=== PATIENT | male | born 1945 | race Caucasian/White ===

== ENCOUNTER 2020-10-10 07:02 | Day surgery (SDC) | payer OTHER ==
[2020-10-09 08:38] LABS: Absolute Lymphocytes (CBC) 1.4 K/uL (0.7-4.9); Basophils % 0.6 % (0-1.3); Hematocrit 39.8 % (39.6-49.0); MPV 7.8 fL (7.6-11.3); RBC Red Blood Cell Count 4.66 M/uL (4.33-5.43)
--- NOTE | 2020-10-09 08:58 | EKG ---
Test Date: 2020-10-09 Test Time: 07:17:25 Tapper Balance Wheel Screw Hole: BEVERLY MEASUREMENT RESULTS: Intervals: Rate: 83 [place]: 170 QRSD: 108 QT: 384 QTc: 451 [place]: P: 65 [place]: 170 QRS: 58 T: 53 INTERPRETIVE STATEMENTS: Sinus rhythm with frequent premature ventricular complexes Possible Left atrial enlargement Borderline ECG Compared to ECG 11/28/2003 08:54:00 Ventricular premature complex(es) now present Electronically Signed On 10-09-20 08:58:32 CDT by Gilmar Fatima
--- NOTE | 2020-10-09 09:36 | RAD REPORT ---
EXAM DESCRIPTION: RAD - Chest Pa And Lat (2 Views) - 10/09/2020 8:42 am CLINICAL HISTORY: preop Chest pain. FINDINGS: The lungs are clear. The heart is normal in size. No displaced fractures. IMPRESSION: No acute or concerning finding suspected.
[2020-10-10] MEDS ORDERED: CEFAZOLIN/SWI 1gm 1 GM/10 ML SYR ONE (07:41)
[2020-10-10] MEDS ORDERED: Ringers Lactate 1,000 ML IV ONE (07:41)
[2020-10-10] MEDS ORDERED: propofoL 200 MG/20 ML VIAL IV ONE (09:40)
[2020-10-10] MEDS ORDERED: LIDOCAINE 2% MPF 5 ML VIAL ONE (09:40)
[2020-10-10] MEDS ORDERED: FENTANYL CITR 100 MCG/2 ML ONE ×2 (09:40→10:42)
[2020-10-10] MEDS ORDERED: ROCURONIUM 50 MG/5 ML VIAL IV ONE (09:40)
[2020-10-10] MEDS ORDERED: MIDAZOLAM HCL 2 MG/2 ML INJ ONE (09:41)
[2020-10-10] MEDS ORDERED: EPHEDRINE SULF 50 MG/ML VIAL ONE (10:31)
[2020-10-10] MEDS ORDERED: GLYCOPYRROLATE 0.2 MG/ML SYR ONE (10:47)
[2020-10-10] MEDS ORDERED: NEOSTIGMINE 1 MG/ML -5 ML ONE (10:47)
[2020-10-10] MEDS: HYDROMORPHONE HCL 1 MG/ML INJ ONE ×2 (10:54→10:59)
[2020-10-10] MEDS ORDERED: ONDANSETRON 4 MG/2 ML VIAL ONE (11:07)
[2020-10-10] MEDS ORDERED: PROMETHAZINE INJ 25 MG/ML AMP ONE (11:12)
--- NOTE | 2020-10-10 11:30 | OP ---
Date of Procedure: 10/10/2020 Surgeon: Carl Almanza MD Med[employer] English [employer] Professor: CHELSEA Rojas. Preoperative Diagnosis: Left inguinal hernia. Postoperative Diagnosis: Left inguinal hernia. Procedure: Repair of left inguinal hernia. Estimated Blood Loss: Minimal. Specimen: Hernia sac and cord lipoma. Findings: As above. Anesthesia: General. Complications: None. Disposition: The patient tolerated the procedure in stable condition and taken to Recovery in good g eneral condition. Procedure In Detail: The patient was brought to the OR and placed in supine position. General anest hesia begun. The patient was prepped and draped in the usual sterile fashion. Marcaine 0.5% was inf iltrated locally. A 15-blade was used to make a 4 cm oblique incision between the left pubic tubercl e and the anterior iliac superior spine. Subcutaneous tissue was divided. Mily fascia identified and divided. Aponeurosis was identified and mobilized inferiorly to expose shelving edge, then opene d through the external ring. The ilioinguinal nerve and cord structures were identified and the cord structures mobilized large indirect sac and cord lipoma were identified, both excised wit h high ligation with 2-0 chromic and 2-0 Prolene for the sac and free hand tie. Then, Marlex mesh pl ug was placed in the internal ring and secured with VersaTack stapler. The onlay mesh placed on the inguinal floor, secured medially to the pubic tubercle, inferiorly to the shelving edge, laterally to each other, superiorly to the conjoined tendon. The cord structures and ilioinguinal nerve were micah frank back in anatomical location. Aponeurosis closed with 2-0 Prolene and 3-0 chromic used to close t he Mily fascia. Zearing were used to close the skin. Sterile dressings were applied. The patient was awakened and taken to Recovery in good general condition. Discharge Note: The patient will go to Day Surgery and home when stable. Disposition: Home. Condition: Stable. Discharge Instructions: Resume home medications and diet. Activity as tolerated. No heavy lifting. Remove outer dressing in 2 days. Shower. Keep wound clean and dry. Follow up in my office in 1 w [place]. Call for appointment. Tylenol No.3 one tablet p.o. q.4 p.r.n. pain. Ice pack and scrotal supp ort as ordered. NAUN/KARLA Voice ID: [id number] Report ID: [id number]
[2020-10-10] MEDS ORDERED: HYDROCODONE/APAP 7.5/325 MG TAB ONE (12:51)
[2020-10-10 14:28] VITALS: BP 134/89; TEMP 98.2; O2SAT 98
== END 2020-10-10 13:37 | disposition home or self-care (01) ==
LOC: OR 07:02
PROVIDERS: ATTEND Surgery
PROC: 0YU60JZ Supplement Left Inguinal Region with Synthetic Substitute, Open Approach (ICD-10-PCS; principal; 2020-10-10 08:15)
DX: K40.90 Unilateral inguinal hernia, without obstruction or gangrene, not specified as recurrent (principal); R10.32 Left lower quadrant pain; Z20.822 Contact with and (suspected) exposure to COVID-19
CPT/HCPCS: 93005; 85025; 80048; 36415; 88302; 71046; 49505; U0003; J2704; J2550; J2250; J3010 ×2; J1170; J2710; J0690; J7120; J2405

== ENCOUNTER 2022-10-20 14:51 | Inpatient (IN) | payer OTHER ==
--- OUTSIDE RECORDS SUMMARY | 2022-10-20 14:53 | XMS REPORT | Continuity of Care Document ---
:1945 Author Organization [facility] t Address [address] [place] [address] Care Team Providers Name Role Phone YUMIKO KARIMI M.D. Attending Clinician Unavailable SONIA BRUSH NP Attending Clinician Unavailable Problems Condition Condition Condition Status Onset Resolution Last Treating Co mments Source Name Details Category Date Date Treatment Clinician Date Knee pain, Knee pain, Problem Active U T right right Physici ans High blood High blood Problem Active U T pressure pressure Physic i ans Primary Primary Problem Active [facility] localized localized Phys ici osteoarthr osteoarthr an s itis of itis of right knee right knee Status Status Problem Active UT post total post total Ph ysici right knee right knee an s replacemen replacemen t using t using cement cement Allergies, Adverse Reactions, Alerts Allergy Allergy Status Severity Reaction(s) Onset Inactive Treating Comm ents Source Name Type Date Date Clinician Compazin drug Active UT e allergy Physici ans Mandol drug Active [facility] allergy Physici ans Family History Family Member Diagnosis Comments Start Date Stop Date Source Father Family history of [facility] Phys icians congestive heart failure Social History Smoking Status Start Date Stop Date Source Never smoker [facility] Medications Ordered Filled Start Stop Current Ordering Indication Dosage Frequency Signature Comments Components Source Medication Medication Date Date Medication? Clinician (SIG) Name Name Celecoxib Celecoxib Yes SONIA Q0.5D TAKE 1 UT 200 MG Oral 200 MG Oral 2-08 BRUSH CAPSULE Physici Capsule Capsule 00:00: N.P. TWICE ans 00 DAILY WITH FOOD. Aleve 220 Aleve 220 Yes UT MG Oral MG Oral Physici Capsule Capsule ans Atorvastati Atorvastati Yes U T n Calcium n Calcium Physi ci 10 MG Oral 10 MG Oral ans Tablet Tablet Finasteride Finasteride Yes U T TABS TABS Physici ans Losartan Losartan Yes UT Potassium Potassium Physi ci TABS TABS ans Vital Signs Vital Name Observation Time Observation Value Comments Source Height 2018-06-23 10:44:00 70 [in_us] [facility] Weight 2018-06-23 10:44:00 180 [lb_av] [facility] Body Mass Index 2018-06-23 10:44:00 25.83 kg/m2 [facility] Calculated Height 2018-05-23 10:27:00 70 [in_us] [facility] Weight 2018-05-23 10:27:00 180 [lb_av] [facility] Body Mass Index 2018-05-23 10:27:00 25.83 kg/m2 [facility] Calculated Procedures Procedure Date / Time Performed Performing Clinician Sourc e [U] XRAY KNEE 3 VWS RIGHT 2018-07-06 00:00:00 [facility] [id number] Post Op Promise 29 Survey 2018-06-23 00:00:00 [facility] History of Appendectomy [facility] History of Tonsillectomy [facility] History of Ankle fracture [facility] repair History of Elbow surgery [facility] History of Total Knee [facility] Replacement Right Encounters Start End Encounter Admission Attending Care Care Encounter Source Date/Time Date/Time Type Type Clinicians Facility Department ID 2018-07-07 2018-07-07 [id number] [place] 10:30:00 10:30:00 t; Femi [facility]DERON [facility] Bang Mccullough M.D. Rosalie 2018-06-23 2018-06-23 Appointvidhya BRUSH [facility] [id number] [place] 11:00:00 11:00:00 t; SONIA BRUSH NP [facility] and Physici SON[facility] Spine WLS ans [employer]RA[employer] Medical Rosalie 2018-06-08 2018-06-08 Appointvidhya [facility]I [facility] [id number] [place] 12:00:00 12:00:00 t; Femi CALDERON Ph ysici stevan KARIMI M.D. 2018-05-23 2018-05-23 [facility] [id number] [place] 09:30:00 09:30:00 t; Femi CALDERON [facility] WLS Bang Mccullough M.D. Rosalie Results Test Description Test Time Test Comments Results Result Comments Source Pre Op Promise 29 Survey 2018-05-17 19:04:16 Test Item Value Reference Range Interpretation Comme nts Pain Interference: (test code = Pain Interference:) 62.7 N Pain Intensity: (test code = Pain Intensity:) 49.9 N Physical Function: (test code = Physical Function:) 48.5 N Satisfaction Role: (test code = Satisfaction Role:) 44.2 N [facility]
[2022-10-20 15:49] LABS: Absolute Lymphocytes (CBC) 1.4 K/uL (0.7-4.9); Hematocrit 46.2 % (39.6-49.0); Lymphocytes % 7.8 % (15.3-44.8); MCV 89.9 fL (80-100); MPV 9.3 fL (7.6-11.3); RBC Red Blood Cell Count 5.14 M/uL (4.33-5.43)
[2022-10-20 15:58] LABS: Bilirubin Total 0.4 mg/dL (0.2-1.0); Potassium 4.2 mEq/L (3.5-5.1); Protein, Total 7.7 g/dL (6.4-8.2)
--- NOTE | 2022-10-20 17:00 | RAD REPORT ---
EXAM DESCRIPTION: CT - Abdomen Pelvis Wo Contrast - 10/20/2022 4:26 pm CLINICAL HISTORY: lower abdominal pain, constipation COMPARISON: No comparisons TECHNIQUE: Thin cut axial CT imaging of the abdomen and pelvis was performed without IV contrast. Mu ltiplanar reformats were generated and reviewed. All CT scans are performed using dose optimization technique as appropriate and may include automated exposure control or mA/KV adjustment according to patient size. FINDINGS: No suspicious findings in the lung bases. The liver, spleen, and pancreas show no suspicious findings. Gallbladder and biliary tree are also wi thout suspicious finding. Symmetric renal contour, without suspicious parenchymal findings within limits of noncontrast techniq ue. Mildly prominent bilateral renal pelvis. 5 millimeter left lower pole calculus and other smaller calculi at the right lower pole not exceeding 3 millimeter. Perinephric fat stranding bilaterally mor e pronounced on the left. No dilated bowel loops or bowel wall thickening. Colonic diverticulosis. No free air, free fluid or i nflammatory stranding. No hernia, mass or bulky lymphadenopathy. The urinary bladder is decompressed limiting evaluation. No suspicious bony findings. IMPRESSION: Perinephric fat stranding bilaterally more pronounced on the left. Bilateral mildly prom inent renal pelves. Findings could relate to a recently passed stone, although possibility of an asce nding infection cannot be entirely excluded. Please correlate with urinalysis results. Nonobstructing bilateral renal calculi the largest measuring 5 millimeter at the left lower pole. No other acute intra-abdominal process.
[2022-10-20] MEDS ORDERED: NA CHLORIDE 0.9% 500 ML ONE ×3 (17:47→19:26)
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
[2022-10-20] MEDS ORDERED: MORPHINE 4 MG/ML SYR ONE (18:17)
[2022-10-20] MEDS ORDERED: ONDANSETRON 4 MG/2 ML VIAL ONE (18:17)
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
[2022-10-20] MEDS ORDERED: CEFTRIAXONE 1000 MG/VIAL ONE (19:21)
[2022-10-20] MEDS ORDERED: NA CHLORIDE 0.9% 50 ML ONE (19:22)
[2022-10-20] MEDS ORDERED: NACHLORIDE 0.45% 1,000 ML IV ONE (19:22)
[2022-10-20] MEDS: NACHLORIDE 0.45% 1,000 ML IV SCH (19:33)
[2022-10-20] MEDS ORDERED: ONDANSETRON 4 MG/2 ML VIAL IV PRN (19:33)
[2022-10-20] MEDS ORDERED: POLYETHYL GLY 3350 17 GM/DOSE PO ONE (21:00)
[2022-10-20] MEDS: FINASTERIDE 5 MG TAB PO SCH (21:30)
[2022-10-20] MEDS ORDERED: MORPHINE 2 MG/ML SYR ONE (21:33)
[2022-10-20] MEDS ORDERED: HEPARIN 5000 UNIT/ML 1 ML VIAL ONE (21:33)
[2022-10-20] MEDS ORDERED: ATORVASTATIN 40 MG TAB ONE (21:33)
[2022-10-20] MEDS ORDERED: AMLODIPINE 5 MG TAB ONE (21:33)
[2022-10-20] MEDS ORDERED: POLYETHYL GLY 3350 17 GM/DOSE ONE (21:34)
[2022-10-20 21:36] LABS: Specific Gravity 1.007 (1.005-1.030); Urine Bacteria <20 /HPF (<20); Urine Bilirubin NEGATIVE (Negative); Urine Blood 2+ (Negative); Urine Clarity Clear (Clear); Urine Color Colorless (Yellow); Urine Glucose NEGATIVE (Negative); Urine Mucus Slight /HPF (None Seen); Urine Protein NEGATIVE (Negative); Urine Urobilinogen Normal (Normal)
[2022-10-20] MEDS: ATORVASTATIN 40 MG TAB PO SCH (21:40)
[2022-10-20] MEDS: MORPHINE 2 MG/ML SYR IV PRN (21:40)
[2022-10-20] MEDS: AMLODIPINE 5 MG TAB PO SCH (21:40)
[2022-10-20] MEDS: HEPARIN 5000 UNIT/ML 1 ML VIAL SQ SCH (22:45)
[2022-10-21 01:16] VITALS: BMI 25.0
[2022-10-21 02:39] LABS: Absolute Lymphocytes (CBC) 1.9 K/uL (0.7-4.9); Hematocrit 30.1 % (39.6-49.0); Lymphocytes % 40.3 % (15.3-44.8); MCV 88.2 fL (80-100); RBC Red Blood Cell Count 3.41 M/uL (4.33-5.43)
[2022-10-21 02:57] LABS: Potassium 3.2 mEq/L (3.5-5.1); Thyroid Stimulating Hormone 0.68 uIU/mL (0.358-3.740); Uric Acid 4.6 mg/dL (3.5-7.2)
[2022-10-21] MEDS: NACHLORIDE 0.45% 1,000 ML IV SCH ×3 (05:23→15:29)
[2022-10-21] MEDS ORDERED: NACHLORIDE 0.45% 1,000 ML IV ONE (05:30)
[2022-10-21] MEDS ORDERED: POTASSIUM CL SA 10 MEQ TAB PO ONE ×2 (08:03→09:27)
--- NOTE | 2022-10-21 08:09 | RAD REPORT ---
EXAM DESCRIPTION: US - Renal Ultrasound-Complete - 10/21/2022 12:01 am CLINICAL HISTORY: arf COMPARISON: Abdomen Pelvis Wo Contrast dated 10/20/2022 TECHNIQUE: Sonographic grayscale and color flow images of the kidneys and bladder were obtained. FINDINGS: Both kidneys are normal in size, shape and echotexture although there is mildly increased cortical echogenicity bilaterally. Mild perinephric fluid bilaterally. The right kidney measures 12.1 centimeter in length. Dnfz-fo-jsbwtuqn hydronephrosis. No focal suspic ious mass. Tiny echogenic calculi, up to 3 millimeter. The left kidney measures 11.9 centimeter in length. Gwhi-bx-thpkvhxy hydronephrosis. No focal suspici ous mass. Left lower calyx 6 millimeter echogenic shadowing calculus. The urinary bladder is suboptimally distended which limits evaluation, with a triangular small projec tion from the wall near the left pelviureteric junction, could relate to underlying prostatomegaly. A small echogenic focus is seen adjacent to this, measuring 4 millimeter, which may represent a small calculus. IMPRESSION: Bilateral small renal calculi as well as a suspected 4 millimeter urinary bladder calcul us. Bilateral gqxv-im-wcxgymxx hydronephrosis. Increased cortical echogenicity and mild perinephric fluid bilaterally. Findings are suggestive of me dical renal disease.
[2022-10-21] MEDS ORDERED: CEFTRIAXONE 1,000 MG in NA CHLORIDE 0.9% 50 ML IVPB SCH (09:00)
[2022-10-21] MEDS: HEPARIN 5000 UNIT/ML 1 ML VIAL SQ SCH ×2 (09:24→21:50)
[2022-10-21] MEDS ORDERED: HEPARIN 5000 UNIT/ML 1 ML VIAL ONE (09:27)
[2022-10-21] MEDS ORDERED: NA CHLORIDE 0.9% 50 ML ONE (09:28)
[2022-10-21] MEDS ORDERED: CEFTRIAXONE 1000 MG/VIAL ONE (09:28)
[2022-10-21] MEDS: MORPHINE 2 MG/ML SYR IV PRN ×2 (09:47→15:28)
[2022-10-21] MEDS ORDERED: MORPHINE 2 MG/ML SYR ONE (09:54)
[2022-10-21] MEDS ORDERED: HYDROCODONE/APAP 5/325 MG TAB PO SCH (21:00)
--- NOTE | 2022-10-21 21:02 | PN ---
Date of Progress Note: 10/21/2022 Subjective: Patient was seen this morning for followup. He was admitted last night under my service as I was assisting the hospitalist team and that is why this patient was admitted under my service. Patient does not have any primary care provider locally in the area and he goes to [facility] for his medical care. I have reviewed current hospital records. Patient came into emergency room with flan k pain and trouble voiding. After he was evaluated in the ER, he was admitted to the hospital with a cute pyelonephritis type of problem. He never had any prior episode like this. This morning when I saw him, he was feeling better. No new complaints or problems reported. Objective: Vital Signs: Reviewed. HEENT: Unremarkable. Lungs: Clear to auscultation. Heart: Sounds normal. Abdomen: Soft. Bowel sounds normal. No guarding, rigidity, tenderness, distention. Extremities: No leg edema. Laboratory Data: This morning, white count 4.8, hemoglobin 10.3, platelets 167. Sodium 142, potassi um 3.2, chloride 108, bicarb 32, BUN 14, creatinine 0.97, glucose 154. Impression: 1.Acute pyelonephritis. 2.Acute kidney injury. 3.Anemia. 4.Hypertension. 5.Hyperlipidemia. 6.Hypokalemia. Plan: We will go ahead and continue current antibiotics. Continue IV fluid per order. Follow up on culture results and then once we get the final culture results, then we will decide about appropriat e antibiotics that the patient can go home with. Patient has his eyedrops as prescribed by his eye s pecialist and he was advised that he should continue to use those eyedrops as suggested and prescribe d by his hook and eye attacher. He was taking acetazolamide as prescribed by his hook and eye attacher and order w as written for nursing staff to make sure to continue that as well because I do not see that particul ar medication listed in his home medication list. I will see him tomorrow for followup and replace p otassium per order. COOKIE/MODL Voice ID: [id number] Report ID: [id number]
[2022-10-21] MEDS: AMLODIPINE 5 MG TAB PO SCH (21:49)
[2022-10-21] MEDS: ATORVASTATIN 40 MG TAB PO SCH (21:49)
[2022-10-21] MEDS: FINASTERIDE 5 MG TAB PO SCH (21:49)
[2022-10-22 06:16] LABS: Absolute Lymphocytes (CBC) 1.8 K/uL (0.7-4.9); Hematocrit 41.8 % (39.6-49.0); Lymphocytes % 15.8 % (15.3-44.8); MCV 88.7 fL (80-100); MPV 8.3 fL (7.6-11.3); RBC Red Blood Cell Count 4.71 M/uL (4.33-5.43)
[2022-10-22 06:39] LABS: Magnesium 2.1 mg/dL (1.6-2.4); Potassium 3.8 mEq/L (3.5-5.1)
[2022-10-22] MEDS ORDERED: HYDROCODONE/APAP 5/325 MG TAB PO PRN (07:01)
[2022-10-22] MEDS: HEPARIN 5000 UNIT/ML 1 ML VIAL SQ SCH ×2 (09:03→21:10)
[2022-10-22] MEDS: CEFTRIAXONE 1,000 MG in NA CHLORIDE 0.9% 50 ML IVPB SCH ×2 (09:04→21:06)
[2022-10-22 15:55] LABS: Hematocrit 41.5 % (39.6-49.0); Lymphocytes % 19.1 % (15.3-44.8); MCV 89.4 fL (80-100); MPV 9.2 fL (7.6-11.3); RBC Red Blood Cell Count 4.64 M/uL (4.33-5.43)
[2022-10-22 15:56] LABS: Potassium 3.9 mEq/L (3.5-5.1)
--- NOTE | 2022-10-22 18:53 | PN ---
Date of Progress Note: 10/22/2022 Subjective: The patient was seen this morning for followup. Yesterday evening, he requested some di fferent pain medication for his flank pain because morphine IV use was providing pain relief for a ve ry short period of time. Hydrocodone 5 mg three times a day was ordered, and he received one dose la st night and reported this morning that that has provided significant pain relief. This morning, he feels a lot better. The pain is significantly better. Denies any nausea, vomiting. He is denying a ny abdominal pain. No dysuria, and he is able to void without any difficulty. No blood in urine. Objective: Vital Signs: Reviewed. This morning, he is afebrile but maximum temperature in last 24 hours is 99.2 degrees Fahrenheit. HEENT: Unremarkable. Lungs: Clear to auscultation. Heart: Sounds normal. Abdomen: Soft. Bowel sounds normal. No guarding, rigidity, tenderness, distention. Extremities: No leg edema. Laboratory Data: White count 11.6, hemoglobin 13.8, platelets 183. Sodium 138, potassium 3.8, chlor sandy 111, bicarb 23, BUN 28, creatinine 1.74, glucose 117. Impression: 1.Acute pyelonephritis. 2.Acute kidney injury. 3.Hypertension. 4.Hyperlipidemia. 5.Renal stone. Plan: The patient's abdominal ultrasound has shown bilateral small kidney stone and about 4 mm stone in the bladder. The patient's pain is under much better control. Overall, he is doing better. We will increase the dose of ceftriaxone from once a day to 2 times a day. Urine culture and blood cult ure results are pending. We will follow up on blood work tomorrow morning again, and he was encourag ed to keep himself well hydrated. Possible discharge over the weekend depending on his condition and test resul ts. COOKIE/MODL Voice ID: [id number] Report ID: [id number]
[2022-10-22] MEDS: AMLODIPINE 5 MG TAB PO SCH (21:09)
[2022-10-22] MEDS: FINASTERIDE 5 MG TAB PO SCH (21:09)
[2022-10-22] MEDS: ATORVASTATIN 40 MG TAB PO SCH (21:09)
[2022-10-23 00:09] VITALS: O2SAT 96
[2022-10-23 07:32] LABS: Hematocrit 41.6 % (39.6-49.0); Lymphocytes % 21.1 % (15.3-44.8); MCV 88.5 fL (80-100); MPV 8.7 fL (7.6-11.3)
[2022-10-23 07:35] LABS: Potassium 4.2 mEq/L (3.5-5.1)
[2022-10-23] MEDS: CEFTRIAXONE 1,000 MG in NA CHLORIDE 0.9% 50 ML IVPB SCH (07:51)
[2022-10-23] MEDS: HEPARIN 5000 UNIT/ML 1 ML VIAL SQ SCH (07:52)
[2022-10-23 08:43] VITALS: BP 122/69; TEMP 98
--- NOTE | 2022-10-23 14:05 | DS ---
Date of Discharge: 10/23/2022 Disposition: Discharged to go home. Physical Examination: HEENT: Unremarkable. Lungs: Clear to auscultation. Heart: Sounds normal. Abdomen: Soft. Bowel sounds normal. No guarding, rigidity, tenderness, distention. Extremities: No leg edema. Laboratory Data: Upon admission; white count 17.6, hemoglobin 15, platelets 230. Today; white count 9.7, hemoglobin 13.8, platelets 176. His highest 1.74 on 10/22/2022 that was yesterday m orning. Then yesterday afternoon, it was 1.25. This morning; sodium 140, potassium 4.2, chloride 11 4, bicarb 24, BUN 21, creatinine 1.11, glucose 117. Initial chemistry when he came into the hospital ; sodium 140, potassium 4.2, chloride 111, bicarb 23, BUN 28, creatinine 2.22, glucose 123. Discharge Medications And Instructions: 1.Continue all prior home medications. 2.Take Levaquin 500 mg daily for 10 days. 3.Follow up with your physician at [facility] next week and have your primary care provider at [facility] refer you to see urologist for kidney and bladder stones. 4.Drink 50-60 ounces water daily. Final Diagnoses: 1.Acute pyelonephritis. 2.Kidney stone. 3.Bladder stone. 4.Acute kidney injury. 5.Hypertension. 6.Hyperlipidemia. Hospital Course: This is a 77-year-old very pleasant male patient, who goes to [facility] as his [facility] care provider came into our emergency room with complaints of abdominal pain, flank pain, and tro uble voiding. After the patient was evaluated in the ER, he was admitted to the hospital under hospi talist service and I was providing coverage for the hospitalist service, so he was admitted under my service. The patient was evaluated in the ER, was diagnosed as having bilateral small renal stones w ith evidence of some hydronephrosis and we were concerned about possibility of pyelonephritis with hi s presentation. He was started on empiric antibiotic, which was ceftriaxone and that actually has he lped him to improve significantly. He did require some narcotic pain medication, but also flank pain has completely resolved, lower abdominal discomfort has resolved, and his urinary complaints have co mpletely resolved. Overall, the patient is doing very well, has improved quite a bit and today he wi ll be discharged to go home in stable condition. I have informed him of CAT scan and ultrasound resu lt showing bilateral small renal stones and a bladder stone and he was advised to have a followup wit h the urologist. He informed me that he will follow up with [facility] and have his [facility] provide r refer him to see a urologist . He is tolerating diet very well, ambulating well, and he will be discharged to go home in stable condition today with above-mentioned medications and instruct ions. COOKIE/MODL Voice ID: [id number] Report ID: [id number]
== END 2022-10-23 12:07 | disposition home or self-care (01) | DRG 683 ==
LOC: ER 14:51 → ERHOLD 18:21 → 2ND 10-21 14:35
PROVIDERS: ADMIT Internal Medicine; ATTEND Internal Medicine
DX: N17.9 Acute kidney failure, unspecified (principal); H20.00 Unspecified acute and subacute iridocyclitis; N10 Acute pyelonephritis; N20.0 Calculus of kidney; E86.0 Dehydration; I10 Essential (primary) hypertension; Z90.49 Acquired absence of other specified parts of digestive tract; E78.5 Hyperlipidemia, unspecified; D64.9 Anemia, unspecified; E87.6 Hypokalemia; N21.0 Calculus in bladder
CPT/HCPCS: 36415; 74176; 76770; 80048; 80053; 81001; 82550; 83605; 83690; 83735; 84439; 84443; 84550; 85025; 87040; 87086; 87088; 96361; 96374; 96375; 99285; J0696; J1644; J2270; J2405; J7040

== ENCOUNTER 2024-09-16 10:20 | Emergency (ER) | payer OTHER ==
--- OUTSIDE RECORDS SUMMARY | 2024-09-16 10:23 | XMS REPORT | Continuity of Care Document ---
Author Name Unknown Address [address] [place] [address] [facility] Address [address] [place] [address] Care Team Providers Care Motor Racer Name Role Phone LISA MILLER Primary Care Physician Unavailab LISA Stone Attending Clinician Unavailable LISA MILLER Attending Clinician Unavailable Doctor Unassigned, [place] Attending Clinician U YUMIKO Smith M.D. Attending Clinician Unavail SONIA Garza NP Attending Clinician Mehreen ble Payers Payer Name Policy Type Policy Number Effective Date Expirati on Date Source [facility] LUCIO [id number] 2022 00:00:00 Problems Condition Name Condition Details Condition Category Status Onset Date Resolution Date Last Treatment Date Treating Clinician Comments Source Primary hypertensi on Primary hypertensi on Disease Active 11-12 00:00: 00 [facility] Hyperlipid emia, unspecifie d hyperlipid emia type Hyperlipid emia, unspecifie d hyperlipid emia type Disease Active 11-12 00:00: 00 [facility] Angina of effort Angina of effort Disease Active 11-12 00:00: 00 [facility] Prediabete s Prediabete s Disease Active 11-12 00:00: 00 [facility] Knee pain, right Knee pain, right Problem Active [facility] High blood pressure High blood pressure Problem Active [facility] Primary localized osteoarthr itis of right knee Primary localized osteoarthr itis of right knee Problem Active [facility] 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 Problem Active [facility] Allergies, Adverse Reactions, Alerts Allergy Name Allergy Type Status Severity Reaction(s) Onset Date Inactive Date Treating Clinician Comments Source PROCHLOR PERAZINE DRUG INGREDI Active High Hallucinates 11-12 00:00: 00 [facility] CEFAMAND OLE DRUG INGREDI Active High Rash 11-12 00:00: 00 [facility] Prochlor perazine Propensi ty to adverse reaction s Active Hallucinatio ns 11-12 00:00: 00 [facility] Cefamand ole Propensi ty to adverse reaction s Active Rash 11-12 00:00: 00 [facility] NO KNOWN ALLERGIE S Drug Class Active [facility] Compazin e drug allergy Active [facility] Mandol drug allergy Active [facility] Family History Family Member Diagnosis Comments Start Date Stop Date Sourc e Father Family history of congestive heart failure [facility] Social History Social Habit Start Date Stop Date Quantity Comments Source Tobacco use and exposure 2022-11-12 00:00:00 2022-11-12 00:00:00 Smokeless tobacco non-user [facility] Alcohol intake 2022-11-12 00:00:00 2022-11-12 00:00:00 Lifetime non-drinker (finding) [facility] Sex Assigned At 1945 00:00:00 1945 00:00:00 [facility] Smoking Status Start Date Stop Date Source Tobacco smoking consumption unknown [facility] Never smoked tobacco [facility] Medications Ordered Medication Name Filled Medication Name Start Date Stop Date Current Medication? Ordering Clinician Indication Dosage Frequency Signature (SIG) Comments Components Source finasteride 5 mg tablet 11-12 08:18: 50 11-12 00:00 :00 No 5mg Take 1 tablet by mouth in the morning. [facility] amLODIPine 5 mg tablet 11-12 08:07: 04 Yes 5mg Take 1 tablet by mouth in the morning. [facility] losartan 100 mg tablet 11-12 08:07: 04 Yes 100mg Take 1 tablet by mouth in the morning. [facility] atorvastati n 40 mg tablet 11-12 08:07: 04 Yes 40mg Take 1 tablet by mouth in the morning. [facility] Celecoxib 200 MG Oral Capsule Celecoxib 200 MG Oral Capsule 06-23 00:00: 00 Yes SONIA BRUSH N.P. Q0.5D TAKE 1 CAPSULE TWICE DAILY WITH FOOD. [facility] Aleve 220 MG Oral Capsule Aleve 220 MG Oral Capsule Yes [facility] Atorvastati n Calcium 10 MG Oral Tablet Atorvastati n Calcium 10 MG Oral Tablet Yes [facility] Finasteride TABS Finasteride TABS Yes [facility] Losartan Potassium TABS Losartan Potassium TABS Yes [facility] Vital Signs Vital Name Observation Time Observation Value Comments S our Systolic blood pressure 2022-11-12 13:16:00 130 mm[Hg] [facility] Diastolic blood pressure 2022-11-12 13:16:00 76 mm[Hg] [facility] Heart rate 2022-11-12 13:07:00 78 /min [facility] Body height 2022-11-12 13:07:00 180.3 cm [facility] Body weight 2022-11-12 13:07:00 81.239 kg [facility] BMI 2022-11-12 13:07:00 24.98 kg/m2 [facility] Oxygen saturation in Arterial blood by Pulse oximetry 2022-11-12 13:07:00 96 /min [facility] Height 2018-06-23 10:44:00 70 [in_us] [facility] Weight 2018-06-23 10:44:00 180 [lb_av] [facility] Body Mass Index Calculated 2018-06-23 10:44:00 25.83 kg/m2 [facility] Height 2018-05-23 10:27:00 70 [in_us] [facility] Weight 2018-05-23 10:27:00 180 [lb_av] [facility] Body Mass Index Calculated 2018-05-23 10:27:00 25.83 kg/m2 [facility] Procedures Procedure Date / Time Performed Performing Clinician Source [facility] PATIENT FINANCIAL POLICY 2022-11-12 12:47:42 Doctor Unassigned, [place] [facility] [U] XRAY KNEE 3 VWS RIGHT [id number] 2018-07-06 00:00:00 [facility] Post Op [facility] 29 Survey 2018-06-23 00:00:00 [facility] History of Appendectomy [facility] History of Tonsillectomy [facility] History of Ankle fracture repair [facility] History of Elbow surgery [facility] History of Total Knee Replacement Right [facility] Encounters Start Date/Time End Date/Time Encounter Type Admission Type Attending Clinicians Care Facility Care Department Encounter ID Source 2024-07-24 14:20:00 2024-07-24 14:20:00 Outpatient LISA JOHNSTON [facility] [id number] [facility] 2023-05-17 09:20:00 2023-05-17 09:20:00 Outpatient LISA JOHNSTON [facility] [id number] [facility] 2022-11-12 08:00:00 2022-11-12 08:41:58 [facility] [id number] [facility] 2022-11-12 08:00:00 2022-11-12 08:41:58 Office Visit Lisa Miller [facility] 1..[id number] [facility] 2022-11-12 00:00:00 2022-11-12 00:00:00 Orders Only Doctor Unassigned, [place] [facility] 1..[id number] [facility] 2018-07-07 10:30:00 2018-07-07 10:30:00 Appointvidhya t; YUMIKO KARIMI M.D. YUMIKO KARIMI M.D. [facility] [place] [id number] [place] [facility] 2018-06-23 11:00:00 2018-06-23 11:00:00 Appointmen t; SONIA BRUSH, SONIA TRUJILLO NP [facility] [place] [id number] [place] [facility] 2018-06-08 12:00:00 2018-06-08 12:00:00 Appointmen t; YUMIKO KARIMI M.D. PARSLEY, BRIAN, M.D. [facility] [id number] [place] [facility] 2018-05-23 09:30:00 2018-05-23 09:30:00 Appointmen t; YUMIKO KARIMI M.D. PARSLEY, BRIAN, M.D. [facility] [place] [id number] [place] [facility] Results Test Description Test Time Test Comments Results Result Co mments Source [facility]
[2024-09-16] MEDS ORDERED: ONDANSETRON 4 MG/2 ML VIAL ONE (10:33)
[2024-09-16] MEDS ORDERED: NA CHLORIDE 0.9% 1,000 ML ONE ×2 (10:34→11:30)
[2024-09-16] MEDS ORDERED: MORPHINE 4 MG/ML SYR ONE (10:34)
[2024-09-16 10:42] LABS: Absolute Lymphocytes (CBC) 0.7 K/uL (0.7-4.9); Absolute Monocytes 0.7 K/uL (0.1-1.3); Absolute Neutrophil 8.9 K/uL (1.8-8.0); Basophils % 0.2 % (0-1.3); Eosinophils % 0.1 % (0-4.4); Hematocrit 46.4 % (39.6-49.0); Hemoglobin 15.6 g/dL (13.6-17.9); Lymphocytes % 6.5 % (15.3-44.8); MCH 29.6 pg (27.0-35.0); MCHC 33.6 g/dL (32.0-36.0); MPV 8.2 fL (7.6-11.3); Monocytes % 6.3 % (3.3-12.3); Neutrophils % 86.9 % (41.7-73.7); Nucleated RBC Absolute Count 0.1 (0-0); Platelets 193 thou/uL (152-406); RBC Red Blood Cell Count 5.27 M/uL (4.33-5.43); Red Cell Distribution Width 14.8 % (12.1-15.2)
[2024-09-16 11:02] LABS: Albumin 3.9 g/dL (3.4-5.0); Albumin/Globulin Ratio 0.9 (1.1-1.8); Anion Gap 9.6 mEq/L (5.0-15.0); Bilirubin Total 0.4 mg/dL (0.2-1.0); Globulin 4.2 g/dL (2.3-3.5); Potassium 3.6 mEq/L (3.5-5.1); Protein, Total 8.1 g/dL (6.4-8.2); Troponin High Sensitivity 15.6 pg/mL (<58.9)
--- NOTE | 2024-09-16 11:10 | RAD REPORT ---
EXAMINATION: CT ABDOMEN AND PELVIS WITHOUT CONTRAST CLINICAL INDICATION: ABD PAIN TECHNIQUE: CT abdomen and pelvis was performed, without IV contrast, as per department protocol. Axia l, sagittal and coronal reconstructions were obtained. One or more of the following dose reduction techniques were used: Automated exposure control, adjustment of the mA and kV according to the patien t size, and iterative reconstruction. Unless otherwise specified, incidental findings do not require dedicated imaging follow-up. COMPARISON: No prior exam. FINDINGS: The lack of intravenous contrast limits the sensitivity of this exam for evaluation of solid visceral organs, vascular structures, and retroperitoneum. LOWER CHEST: The visualized lung bases are clear. LIVER:Normal in size and contour. No focal lesion. Grossly unremarkable gallbladder. SPLEEN: Normal size. No focal lesion. PANCREAS: No mass, ductal dilation, or rebeca-pancreatic fluid. ADRENALS: Normal; no mass. KIDNEYS AND URETERS: Small collection of linear oriented calculi in the urinary bladder along the rig ht UVJ mucosal surface measuring 6 x 2 mm. Moderate right hydronephrosis and hydroureter caused by this. No left-sided tract calculus. URINARY BLADDER: Normal contour. GASTROINTESTINAL TRACT: No evidence of bowel obstruction, significant free fluid, free air or abscess . There is mild diverticulosis coli of the sigmoid colon without diverticulitis. APPENDIX: Appendix not visualized, but no inflammatory changes in region of appendix. LYMPH NODES: No lymphadenopathy. MUSCULOSKELETAL: Moderate multilevel spinal degenerative changes. ADDITIONAL FINDINGS: Mild prominence of the prostate gland. IMPRESSION: Collection of calculi linearly oriented at the right UVJ bladder mucosal surface measuring 6 x 2 mm n oted, resulting in moderate right hydronephrosis and hydroureter.
[2024-09-16] MEDS ORDERED: KETOROLAC 30 MG/ML INJ ONE (11:29)
--- NOTE | 2024-09-16 11:30 | RAD REPORT ---
EXAMINATION: ONE VIEW CHEST XR CLINICAL INDICATION: CHEST PAIN TECHNIQUE: Frontal chest projection is submitted. Examination is limited by patient positioning and t echnique. COMPARISON: 10/15/2022 FINDINGS: The lungs are well inflated and clear. The heart is upper limit of normal in size. No displaced fract ures identified. IMPRESSION: No acute intrathoracic abnormalities.
[2024-09-16 12:40] LABS: Specific Gravity 1.015 (1.005-1.030); Sqamous Epithelial None Seen /HPF (None Seen); Urine Bacteria <20 /HPF (<20); Urine Bilirubin NEGATIVE (Negative); Urine Blood Trace (Negative); Urine Clarity Extremely Turbid (Clear); Urine Color Light-Yellow (Yellow); Urine Crystals Unidentified Moderate /HPF (None Seen); Urine Glucose NEGATIVE (Negative); Urine Ketones NEGATIVE (Negative); Urine Micro Reflex YN NO BILL MICROSCOPIC; Urine Nitrite NEGATIVE (Negative); Urine Protein NEGATIVE (Negative); Urine Urobilinogen Normal (Normal); Urine WBC Clump Few /HPF (None Seen); Urine Yeast (Budding) Many /HPF (None Seen)
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
[2024-09-16 15:02] VITALS: BP 143/83; O2SAT 99
--- NOTE | 2024-09-17 12:06 | EKG ---
Test Date: 2024-09-16 Test Time: 10:35:27 Game Bird Farmer: AM MEASUREMENT RESULTS: Intervals: Rate: 72 WI: 168 QRSD: 104 QT: 390 QTc: 427 [place]: P: 55 WI: 168 QRS: 64 T: 93 INTERPRETIVE STATEMENTS: Normal sinus rhythm Anterior infarct, age undetermined Abnormal ECG Compared to ECG 09/06/2022 17:14:33 Myocardial infarct finding now present Electronically Signed On 09-17-24 12:05:17 CDT by Anthony Randolph
== END 2024-09-16 13:47 | disposition home or self-care (01) ==
LOC: ER 10:20
DX: N13.2 Hydronephrosis with renal and ureteral calculous obstruction (principal); I10 Essential (primary) hypertension; E78.00 Pure hypercholesterolemia, unspecified
CPT/HCPCS: 93005; 85025; 81001; 36415; 84484; 83690; 80053; 74176; 71045; 99285; J2405; J7030 ×2